=== PATIENT | female | born 2000 ===

== ENCOUNTER 2022-07-31 13:59 | Outpatient (CLI) | payer OTHER | END 2022-07-31 15:49 | disposition home or self-care (01) | LOC: PRENATAL 13:59 | PROVIDERS: ATTEND Obstetrics & Gynecology Maternal & Fetal Medicine | DX: O35.9XX0 Maternal care for (suspected) fetal abnormality and damage, unspecified, not applicable or unspecified (principal); O35.3XX0 Maternal care for (suspected) damage to fetus from viral disease in mother, not applicable or unspecified; Z3A.19 19 weeks gestation of pregnancy ==

== ENCOUNTER 2022-10-30 09:09 | Outpatient (CLI) | payer OTHER | END 2022-10-30 10:50 | disposition home or self-care (01) | LOC: PRENATAL 09:09 | PROVIDERS: ATTEND Obstetrics & Gynecology Maternal & Fetal Medicine | DX: O26.849 Uterine size-date discrepancy, unspecified trimester (principal); O36.8199 Decreased fetal movements, unspecified trimester, other fetus; Z3A.32 32 weeks gestation of pregnancy ==

== ENCOUNTER 2022-11-30 14:30 | Inpatient (IN) | payer OTHER ==
[~2022-11-30] VITALS: Ht 167.6 cm; Wt 75.7 kg
[2022-12-23] MEDS ORDERED: PRENATAL CAPLE1 EAC1 PO (16:01)
[2022-12-23] MEDS ORDERED: IRON325 MG (16:01)
== END 2022-12-26 13:31 | disposition home or self-care (01) | DRG 807 ==
LOC: LDR 12-19 14:30 → OB/GYN 12-23 15:49 → LDR 12-23 15:49 → OB/GYN 12-24 02:24
PROVIDERS: ADMIT Obstetrics & Gynecology; ATTEND Obstetrics & Gynecology
PROC: 4A1HXCZ Monitoring of Products of Conception, Cardiac Rate, External Approach (ICD-10-PCS; 2022-12-23)
PROC: 10E0XZZ Delivery of Products of Conception, External Approach (ICD-10-PCS; principal; 2022-12-24)
PROC: 0W8NXZZ Division of Female Perineum, External Approach (ICD-10-PCS; 2022-12-24)
DX: O80 Encounter for full-term uncomplicated delivery (principal); Z37.0 Single live birth; Z3A.40 40 weeks gestation of pregnancy